=== PATIENT | male | born 2000 | race Caucasian/White ===

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

== ENCOUNTER 2023-11-19 22:09 | Emergency (ER) | payer BC, OTHER ==
[2023-11-19 22:39] VITALS: PULSE 66
[2023-11-19] MEDS ORDERED: Diphtheria,Pertussis(Acell),Tetanus Vaccine 0.5 ML Syringe IM ONE (22:42)
[2023-11-19] MEDS ORDERED: Lidocaine 1% 10 ML MDV INJECT ONE (22:42)
[2023-11-19] MEDS ORDERED: Lidocaine/Epineph/Tetracaine 3 ML Syringe TOP ONE (22:44)
[2023-11-19] MEDS ORDERED: Bacitracin Oint 15 GM Tube TOP ONE (23:45)
[2023-11-20 00:21] VITALS: BP 122/73
== END 2023-11-19 23:52 | disposition home or self-care (01) ==
LOC: JD.ED 22:09
DX: S01.112A Laceration without foreign body of left eyelid and periocular area, initial encounter (principal); Z23 Encounter for immunization; Z88.2 Allergy status to sulfonamides; X58.XXXA Exposure to other specified factors, initial encounter; Y93.67 Activity, basketball
CPT/HCPCS: 12011; 90471; 90715; 99282; A9270; 12001; 99284; J3490